=== PATIENT | female | born 1980 | race Caucasian/White ===

== ENCOUNTER 2021-06-14 23:41 | Emergency (ER) | payer SELFPAY ==
[2015-07-05 18:40] VITALS: BP 153/84
[~2021-06-14] VITALS: Ht 152.4 cm; Wt 55.9 kg
[~2021-06-14 23:41] MED LIST: BENZ2AMP4 IJ; BUPR75TA5 PO; LAMO25TA5 PO; LEVO25TA4 PO; PREMPRO 0.3 MG1 EACH PO
--- NOTE | 2021-06-14 23:57 | PHYS DOC ---
Past Medical History Past Medical History: Anxiety, Bipolar, Depression, Hypothyroid Past Surgical History: Hysterectomy Smoking Status: Current Every Day Smoker Alcohol Use: None Drug Use: None General Adult EDM: Chief Complaint: COUGH HPI: HPI: Patient is a 41-year-old female who presents to the emergency department for a productive cough, shortness of breath, fever, right ear pain that started today. Patient denies any chest pain, nausea, vomiting. She is vaccinated for COVID-19. Review of Systems: Review of Systems: Constitutional: negative unless reported in HPI Eyes: negative unless reported in HPI HENT: negative unless reported in HPI Respiratory: negative unless reported in HPI Cardiovascular: negative unless reported in HPI GI: negative unless reported in HPI : negative unless reported in HPI Musculoskeletal: negative unless reported in HPI Integument: negative unless reported in HPI Neurologic: negative unless reported in HPI Endocrine: negative unless reported in HPI Lymphatic: negative unless reported in HPI Psychiatric: negative unless reported in HPI Heart Score: C/O Chest Pain: No Risk Factors: Risk Factors: DM, Current or recent (<one month) smoker, HTN, HLP, family history of CAD, obesity. Risk Scores: Score 0 - 3: 2.5% MACE over next 6 weeks - Discharge Home Score 4 - 6: 20.3% MACE over next 6 weeks - Admit for Clinical Observation Score 7 - 10: 72.7% MACE over next 6 weeks - Early Invasive Strategies Allergies: Allergies: Allergies Coded Allergies Type Severity Reaction Last Updated Verified Penicillins Allergy Unknown 05/12/15 Yes Sulfa (Sulfonamide Antibiotics) Allergy Unknown 05/12/15 Yes cephalexin Allergy Unknown 05/12/15 Yes Physical Exam: PE: Constitutional: Well developed, well nourished, no acute distress, non-toxic appearance. [] HENT: Normocephalic, atraumatic, bilateral external/internal ears normal, oropharynx moist, no oral exudates, postnasal drainage, no tonsillar enlargement, no oral exudates, erythematous oropharynx, uvula midline, no trismus, no phonation changes nose normal. [] Eyes: PERRL, EOMI, conjunctiva normal, no discharge. [] Neck: Normal range of motion, no tenderness, supple, no stridor. [] Cardiovascular:Heart rate regular rhythm, no murmur [] Lungs & Thorax: Bilateral breath sounds clear to auscultation [] Abdomen: Bowel sounds normal, soft, no tenderness, no masses, no pulsatile masses. [] Skin: Warm, dry, no erythema, no rash. [] Back: Normal range of motion Extremities: No tenderness, no cyanosis, no clubbing, ROM intact, no edema. [] Neurologic: Alert and oriented X 3, normal motor function, normal sensory function, no focal deficits noted. [] Psychologic: Affect normal, judgement normal, mood normal. [] Current Patient Data: Labs: Laboratory Tests Test 06/14/21 23:55 Influenza Type A Antigen Negative Influenza Type B Antigen Negative SARS-CoV-2 Antigen (Rapid) Negative EKG: EKG: [] Radiology/Procedures: Radiology/Procedures: []PROCEDURE: PORTABLE CHEST 1V Single view chest dated 06/15/2021 12:16 AM: COMPARISON: None Clinical Indication: Shortness of breath. Findings: Single upright portable exam of the chest was performed. Heart size and mediastinal contours are within normal limits. Lungs are clear. No consolidation or pleural effusion. No pneumothorax. IMPRESSION: No acute radiographic abnormality. Electronically signed by: Gurpreet Meredith MD (06/15/2021 12:16 AM) [facility] [place] DICTATED and SIGNED BY: GURPREET MEREDITH MD DATE: 06/15/21 [id number] 0 Course & Med Decision Making: Course & Med Decision Making Pertinent Labs and Imaging studies reviewed. (See chart for details) [] Patient presents to the emergency department for productive cough, shortness of breath, fevers, right ear pain. Patient was tested for influenza and that was negative patient's COVID result was negative. Chest x-ray performed to rule out pneumonia that showed no acute findings. Patient educated on symptomatic treatment, discharged home with cough medication and inhaler for shortness of breath. I discussed with patient all findings and diagnostic testing as well as the need to follow-up with PCP for further evaluation and treatment or return to the ER if any new or worsening symptoms. Strict return precautions were also discussed at length. Patient voiced understanding and agreement with the plan. Patient is hemodynamically stable at the time of disposition. Dragon Disclaimer: Dragon Disclaimer: This electronic medical record was generated, in whole or in part, using a voice recognition dictation system. Departure Departure Impression: Primary Impression: Viral respiratory illness Disposition: HOME / SELF CARE / HOMELESS Condition: GOOD Referrals: NO PCP (PCP) Patient Instructions: Cough, Adult Additional Instructions: You were seen in the emergency department today for cough, shortness of breath, fever and ear pain. Your physical exam was reassuring and your ear did not show any signs of infection. We tested you for influenza and that was negative your COVID test was negative. Your chest x-ray showed no acute findings. Please take Tylenol and ibuprofen for any pain or fevers. Increase your fluids and rest. For your cough you can take the cough medication that is prescribed for you. If you are short of breath you can use the inhaler that is prescribed for you. Follow- up with your primary care provider tomorrow regarding your ER visit. Return to the emergency department if you develop shortness of breath, high fevers refractory to treatment, intractable nausea or vomiting, chest pain, weakness. Scripts Albuterol Sulfate (Proair Hfa) 8.5 Gm Hfa.aer.ad 2 PUFF IH PRN Q4-6HRS PRN for wheezing for 21 Days, #1 INHALER 0 Refills Prov: KARIN ORTIZ APRN 06/15/21 Benzonatate (BENZONATATE) 100 Mg Capsule 1 CAP PO TID for 7 Days, #21 CAP 0 Refills Prov: KARIN ORTIZ APRN 06/15/21 KARIN ORTIZ APRN Jun 14, 2021 23:57
--- NOTE | 2021-06-15 00:19 | RAD ---
Single view chest dated 06/15/2021 12:16 AM: COMPARISON: None Clinical Indication: Shortness of breath. Findings: Single upright portable exam of the chest was performed. Heart size and mediastinal contours are with in normal limits. Lungs are clear. No consolidation or pleural effusion. No pneumothorax. IMPRESSION: No acute radiographic abnormality. Electronically signed by: Juan Meredith MD (06/15/2021 12:16 AM) [facility]
[2021-06-15 00:20] LABS: INFLUENZA A PATIENT NEGATIVE (NEGATIVE); INFLUENZA B PATIENT NEGATIVE (NEGATIVE)
[2021-06-15] MEDS ORDERED: BENZ-8 PO (00:22)
[2021-06-15] MEDS ORDERED: ALBU2.5V8 IH (00:22)
== END 2021-06-15 00:39 | disposition home or self-care (01) ==
LOC: ER 23:41
DX: B34.9 Viral infection, unspecified (principal); Z20.822 Contact with and (suspected) exposure to COVID-19; E03.9 Hypothyroidism, unspecified; F31.9 Bipolar disorder, unspecified; F17.200 Nicotine dependence, unspecified, uncomplicated; Z88.0 Allergy status to penicillin; Z88.1 Allergy status to other antibiotic agents; Z88.2 Allergy status to sulfonamides
CPT/HCPCS: 71045; 87428; 99284